=== PATIENT | male | born 1960 | race Caucasian/White ===

== ENCOUNTER → 2021-04-25 | Outpatient (CLI) | payer OTHER ==
[~2021-04-25] VITALS: Ht 182.9 cm; Wt 76.7 kg
[~2021-04-25] MED LIST: ALTACE10 MG PO; ASA81BEC PO; ASPIR-TRIN325 MG PO; ASPIRIN325 PO; ATORVASTATIN CA80 MG PO; CELEXA20 MG PO; CELEXA40 MG PO; HYDROCODONE-APA1 TA1 PO; NORVASC5 MG PO; PERCOCET 7.5-31 EACH PO; PLAVIX 75 MG TA75 MG PO; TRELEGY ELLIPT1 EACH INH; VENTOLIN HFA 1818 GM INH; ZYRTEC10 M5 PO
--- NOTE | 2021-04-27 18:06 | PATH ---
[facility] [address] [place] [address] PATHOLOGY RPT PROCEDURE Name: TERA SANTAMARIA Room #: REG NINA Avilez.#: [id number] Admission: 04/25/21 Date of : 56 Discharge: Report #: [id number] Path Case #: [id number] [facility] Accession Number: [id number] . 01 Material submitted: . colon - ASCENDING COLON POLYP BX X2. Modifiers: ascending . 01 Clinical history: . COLONOSCOPY 5YR F/O - HX OF POLYPS COLON POLYPS, INTERNAL HEMORRHOIDS . 02 Diagnosis: Polyp x 2, ascending colon polyp, endoscopic biopsy: - Two minute fragments showing tubular adenoma; negative for high-grade dysplasia. - Remainder fragments showing hyperplastic polyps; negative for dysplasia. . (IUV:pit; 04/27/2021) QTP 04/27/2021 1321 Local . 02 Electronically signed: . Lacey Singh MD, Pathologist NPI- [id number] . 01 Gross description: . Received in formalin labeled "Tera Santamaria, ascending colon polyp biopsy" are multiple james-brown soft tissue fragments measuring in aggregate 1.6 x 1.1 x 0.3 cm. The specimen is submitted entirely in A1. ([facility]; 04/26/2021) GZA/GZA 04/26/2021 1647 Local . 02 Pathologist provided ICD-10: D12.2, K63.5 . 02 CPT . 568275 Specimen Comment: A courtesy copy of this report has been sent to [phone], [phone] Specimen Comment: [id number] Specimen Comment: Report sent to / DR TYSON Performed at: [address] [id number] MD Mic Middleton MD Phone: [phone] Performed at: [address] [id number] [address] [address] PATHOLOGY RPT PROCEDURE Name: TERA SANTAMARIA EVETTE Room #: REG CLAbiola Gallardo#: [id number] Admission: 04/25/21 Date of : 56 Discharge: Report #: [id number] Path Case #: [id number] MD Lacey Singh MD Phone: [phone]
== END | disposition home or self-care (01) ==
LOC: GI 08:37
PROVIDERS: ATTEND Internal Medicine Gastroenterology
DX: Z12.11 Encounter for screening for malignant neoplasm of colon (principal); Z86.010 Personal history of colon polyps; Z80.0 Family history of malignant neoplasm of digestive organs; D12.2 Benign neoplasm of ascending colon; K64.8 Other hemorrhoids; I10 Essential (primary) hypertension; E78.5 Hyperlipidemia, unspecified; J44.9 Chronic obstructive pulmonary disease, unspecified; F17.210 Nicotine dependence, cigarettes, uncomplicated; F32.9 Major depressive disorder, single episode, unspecified; F41.9 Anxiety disorder, unspecified; Z98.890 Other specified postprocedural states; Z79.899 Other long term (current) drug therapy; Z85.828 Personal history of other malignant neoplasm of skin
CPT/HCPCS: 62110; 62900